=== PATIENT | female | born 1930 | race Caucasian/White ===

== ENCOUNTER 2017-02-04 01:20 | Emergency (ER) | payer MEDICARE, BC ==
--- NOTE | 2017-02-04 02:02 | ERNOTE ---
Medical Problem HPI - General Chief Complaint: General Assessment Time Seen by Provider: 02/04/17 01:44 Source: patient Exam Limitations: no limitations - Immun/Allergies/Home Medications Immunizations: IMMUNIZATION HX Immunizations Up to Date No History of Influenza Vaccine No Hx Pneumococcal Vaccination No Allergies/Adverse Reactions: Allergies Penicillins Allergy (Verified 02/04/17 01:33) Home Medications: HOME MEDICATIONS Aspirin 81 mg PO DAILY 02/04/17 [Last Taken Unknown] Ciprofloxacin HCl [Cipro] 250 mg PO BID #10 tab 02/04/17 [Last Taken Unknown] [facility] [place] Advantage Softgel 1 PO 02/04/17 [Last Taken Unknown] Metoprolol Tartrate [Lopressor] 25 mg PO DAILY 02/04/17 [Last Taken Unknown] Warfarin Sodium [Coumadin] 4 mg PO DAILY 02/04/17 [Last Taken Unknown] - History of Present History Narrative: Pt states she has not felt well for 2 days. She slept in the afternoon on Friday. She continues to have fatigue and feeling cold Timing: constant Severity: moderate Review of Systems - Review of Systems Constitutional: Present: See HPI, chills, fatigue EYE: Present: no symptoms reported ENT: Present: nose congestion, nasal drainage Respiratory: Absent: shortness of breath, cough Cardiology: Absent: chest pain, palpitations Gastrointestinal/Abdominal: Absent: nausea, vomiting, constipation Genitourinary: Present: dysuria. Absent: frequency, pain Musculoskeletal: Absent: muscle pain, muscle stiffness Skin: Absent: rash Neurological: Absent: headache, dizziness/light-headedness Endocrine: Present: no symptoms reported Hematologic/Lymphatic: Present: no symptoms reported Psych: Present: no symptoms reported - Patient's Past Medical History Patient History - Cardiac/Respiratory: Atrial Fibrillation, Other Patient History - Cancer: No Hx of Cancer Patient History - Surgical Procedures: Hysterectomy Patient History - Other: None - Social History Living Situations: home Abuse History: No History of abuse Psych History: No pertinent hx Smoking Status: Never smoker Have you smoked in the past 12 months: No Do you dip or chew tobacco: No Patient requests Smoking Cessation Consult: No Initiate information on Smoking Cessation: No Alcohol Use: none Drug Use: none - Immunizations Immunizations Up to Date: No Hx Pneumococcal Vaccination: No History of Influenza Vaccine: No Physical Exam - Physical Exam General Appearance: Present: wd/wn, alert, no apparent distress Head Exam: Present: normal inspection, no evidence of injury Eye Exam: Normal inspection: bilateral, PERRL: bilateral Ears, Nose, Throat: Present: other - mild nasal congestion with pale mucosa Neck: Present: normal inspection, nontender Respiratory: Present: no respiratory distress, normal breath sounds, lungs clear Cardiovascular/Chest: Present: no murmur, irregularly irregular Gastrointestinal/Abdominal: Present: normal bowel sounds, nontender, nondistended, soft, no organomegaly Back Exam: Present: normal inspection, normal range of motion, no vertebral tenderness Extremity Exam: Present: normal inspection, normal range of motion, no edema Neurological Exam: Present: alert, oriented, normal mood/affect Skin Exam: Present: normal color, warm/dry ED Progress - Vital Signs Vital Signs: Vital Signs 02/04/17 01:22 Temperature 36.3 C L Pulse Rate 123 H Respiratory 18 Rate Blood Pressure 140/87 O2 Sat by Pulse 95 Oximetry - EKG EKG: atrial fibrillation, nonspecific ST T wave changes EKG read: Interp. by me - Progress/Reassessment Chief Complaint: General Assessment Departure - Departure Clinical Impression: Urinary tract infection Qualifiers: Urinary tract infection type: acute cystitis Hematuria presence: with hematuria Qualified Code(s): N30.01 - Acute cystitis with hematuria Disposition: Home self-care Condition: Good Instructions: Urinary Tract Infection, Adult, [id number] Additional Instructions: Talk with your doctor about rechecking your INR on Friday due to taking antibiotics Prescriptions: Ciprofloxacin HCl [Cipro] 250 mg PO BID #10 tab
[2017-02-04 02:15] LABS: Hematocrit 34.9 % (37.0-47.0); Hemoglobin 11.4 gm/dL (12.5-16.0); Mean Cell Volume 90.4 fl (78-100); Mean Corpuscular Hemoglobin 29.5 pg (27-31); Mean Corpuscular Hgb Conc 32.7 g/dl (32-36); Mean Platelet Volume 8.6 fl (6.0-9.5); Neutrophil # 7.2 K/mm3 (1.3-6.0); Neutrophil % 90.2 % (42-75.0); Platelet Count 172 K/mm3 (150-450); Red Blood Count 3.86 M/mm3 (4.2-5.4); Red Cell Distribution Width 12.4 % (11.5-14.0); White Blood Count 7.9 K/mm3 (4.0-10.5)
[2017-02-04 02:36] LABS: ALT 16 U/L (19-67); AST 19 U/L (0-48); Albumin * 3.6 gm/dl (3.4-5.0); Alkaline Phosphatase * 116 U/L (50-170); Anion Gap 14.4 mmol/L (6.8-13.8); BNP * 2097 pg/mL (5-550); BUN/Creatinine Ratio 17.4 (9.0-21.6); Bilirubin, Total 0.8 mg/dL (0.0-1.1); Blood Urea Nitrogen 19 mg/dL (3-23); Ca. Corrected For Albumin 8.6 mg/dL (8.4-10.2); Calcium * 8.6 mg/dL (7.9-10.9); Carbon Dioxide 27.6 mmol/L (24-32.6); Chloride 101 mmol/L (97-106); Glucose * 103 mg/dL (70-110); Sodium 139 mmol/L (132-142); Total Protein 7.1 gm/dL (6.2-8.2); Troponin I Less than 0.017 ng/ml (0.00-0.10)
[2017-02-04 02:41] LABS: Urine Bilirubin Negative (NEGATIVE); Urine Blood 50 /ul (NEGATIVE); Urine Ketone Negative (NEGATIVE); Urine Nitrite Negative (NEGATIVE); Urine Protein 30 mg/dL (NEGATIVE); Urine Specific Gravity 1.015 SP.GR. (1.005-1.010); Urine Urobilinogen Normal (NORMAL); Urine pH 5.5 pH (5.0-7.0)
[2017-02-04 02:48] LABS: Urine Appearance Clear; Urine Bacteria 2+; Urine Color Yellow; Urine RBC 0-5 /hpf (0-5); Urine WBC 25-50 /hpf (0-5)
[2017-02-04 04:13] VITALS: BP 127/76
[2017-02-04] MEDS ORDERED: CIPROFLOXACIN HCL 250 MG TABLET PO ONE (04:31)
[2017-02-04] MEDS ORDERED: CIPROFLOXACIN HCL 250 MG TABLET ONE (04:32)
== END 2017-02-04 04:40 | disposition home or self-care (01) ==
LOC: ER 01:20
DX: N30.01 Acute cystitis with hematuria (principal); I48.91 Unspecified atrial fibrillation